=== PATIENT | female | born 1940 | race Caucasian/White ===

== ENCOUNTER 2019-08-30 09:57 | Outpatient (RCR) | payer MEDICARE, SELFPAY ==
[2019-08-30 10:35] LABS: Basophils Absolute Auto 0.01 K/mm3 (0.00-0.10); Basophils Percent Auto 0.2 % (0.0-1.0); Eosinophils Absolute Auto 0.17 K/mm3 (0.02-0.50); Hematocrit 30.7 % (35.0-42.0); Hemoglobin 9.4 g/dL (11.7-13.8); Immature Granulocyte Absolute 0.01 K/mm3 (0.00-0.00); Immature Granulocyte Percent A 0.2 % (0.0-0.0); Lymphocytes Percent Auto 18.9 % (18.0-42.0); Mean Corpuscular HGB Conc 30.6 g/dL (32.0-36.0); Mean Corpuscular Hemoglobin 28.1 pg (27.0-31.0); Mean Corpuscular Volume 91.6 fL (78.0-102.0); Mean Platelet Volume 10.4 fl (9.2-11.8); Monocytes Absolute Auto 0.37 K/mm3 (0.10-0.90); Monocytes Percent Auto 8.7 % (2.0-11.0); Neutrophils Absolute Auto 2.9 K/mm3 (1.7-7.2); Platelet Count Result 135 K/mm3 (150-420); Red Blood Count 3.35 M/mm3 (4.20-5.40); Red Cell Distribution Width 15.7 % (11.6-14.4); White Blood Count 4.2 K/mm3 (4.8-10.8)
== END 2019-11-28 23:59 | disposition home or self-care (01) ==
LOC: CHSLAB 09:57
PROVIDERS: PCP Family Medicine; Visit Provider Family Medicine
DX: D64.9 Anemia, unspecified (principal)
CPT/HCPCS: 36415; 85025

== ENCOUNTER 2019-10-06 09:05 | Emergency (ER) | payer MEDICARE, SELFPAY ==
--- NOTE | ~2019-10-06 | CT_ITS ---
EXAMINATION: CT abdomen pelvis w con DATE: 10/06/2019 10:51 INDICATION: Upper abdominal pain. Nausea and vomiting. TECHNIQUE: Computed tomography (CT) of the abdomen and pelvis was performed with 100 mL Omnipaque 350 intravenous contrast. Automated exposure control and iterative reconstruction technique were employe d. The dose-length product was 317.70 mGy-cm. COMPARISON: CT abdomen and pelvis 02/07/2019 FINDINGS: The visualized portions of the lung bases demonstrate minimal atelectasis. No pleural effus ion. The heart size is normal. No pericardial effusion. There is a permanent biliary stent. 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 Calcifications in the spleen are consistent with old granulomatous disease. There is wall thickening of the distal stomach and pro ximal duodenum with surrounding fat stranding. The pancreatic duct is dilated to 10 mm, worsened from 8 mm on 02/07/19. The adrenal glands are normal. There is a 6 mm stone in right kidney. There is a 5 mm cyst in right kidney. There is a 3 mm stone in left kidney. There are no dilated loops of bowel. T he appendix is not visualized. There are no pathologically enlarged lymph nodes. There is no free int raperitoneal fluid. There is a 13 mm cyst in the vulva. There is lumbar levoscoliosis and severe spon dylosis. IMPRESSION: 1. Unchanged moderate intrahepatic biliary duct dilatation with permanent biliary stent in expected p osition. 2. Pancreatic duct dilatation with slight worsening, likely secondary to an occult primary malignancy in the head of the pancreas. 3. Stable wall thickening of the distal stomach and proximal duodenum with surrounding fat stranding, likely changes of radiation therapy. Reviewed, dictated and finalized at location A. [facility] IMPRESSION: 1. Unchanged moderate intrahepatic biliary duct dilatation with permanent bilia ry stent in expected position. 2. Pancreatic duct dilatation with slight worsening, likely secondary to an occ ult primary malignancy in the head of the pancreas. 3. Stable wall thickening of the distal stomach and proximal duodenum with surr ounding fat stranding, likely changes of radiation therapy.
[2019-10-06 09:10] VITALS: BP 145/68; PULSE 61; RESP 20; TEMP 36.6; O2SAT 98
--- NOTE | 2019-10-06 09:35 | ED.ABDPAIN ---
HPI - Abdominal Pain General Chief Complaint: Abdominal Pain Stated Complaint: oncologist asked pt to go to er Time Seen by Provider: 10/06/19 09:35 Source: patient and RN notes reviewed Mode of arrival: ambulatory Limitations: no limitations History of Present Illness HPI narrative: 79-year-old female has a history of pancreatic cancer. She gets a scan every 3 months by her oncologist recently told her that she could wait until November for repeat scan. For the past 2-3 weeks she has been having increased problems with mid epigastric pain radiates up to her left chest. She has some sweating when she has the pain vomited yesterday. When she has these episodes is usually something associated with her history of pancreatic cancer. She had a Whipple procedure done and then after that had radiation. Apparently 1 of the stents in her common bile duct had eroded. Her oncologist was concerned that she may have cholangitis. She is here for workup and evaluation. With all results going to her oncologist for further instructions. MD elicited complaint: abdominal pain Pertinent past history: constipation and other (Pancreatic cancer s/p Whipple) Onset (ago): week(s) (Gradually getting worse and more frequent) Pain Consistency: intermittent Location: epigastric Severity: severe Quality: cramping Radiation: none Migration to: no migration Exacerbating factors: nothing Relieving factors: nothing Context: confirms history of similar episodes Associated symptoms: nausea, fever and chills Related Data Home Medications Medication Instructions Recorded Confirmed [id number] K 1 tablet PO DAILY 10/06/19 10/06/19 [Adults Multivitamin] pantoprazole [Protonix] 40 mg PO BID 10/06/19 10/06/19 Allergies Allergy/AdvReac Type Severity Reaction Status Date / Time No Known Allergies Allergy Verified 10/06/19 09:31 Review of Systems Constitutional: Constitutional: Denies chills and Denies fever(s) Cardiovascular: Cardiovascular: Reports no additional cardiovascular complaints Respiratory: Respiratory: Reports no additional respiratory complaints Gastrointestinal: Gastrointestinal: Reports nausea and Reports vomiting (Yesterday) Comments: Abd pain radiates to left chest. Musculoskeletal: Musculoskeletal: Reports no additional musculoskeletal complaints Integumentary/Breasts: Skin/Breast: Reports system reviewed and no additional complaints, except as docu Neurologic: Reports system reviewed and no additional complaints, except as documented [facility] Past Medical History Medical History Pancreatic cancer Surgical History Surgical History (Updated 10/06/19 @ 12:[address] MD) History of cholecystectomy History of pancreatic surgery History of rectal surgery Exam Const: General: healthy appearing, no acute distress and alert Nutritional Appearance: well nourished and thin Orientation/consciousness: patient oriented x3 HENMT: Head: normal to inspection Ears: external ears normal Mouth: Yes moist mucous membranes Eyes: Conjunctivae: conjunctivae normal Pupils: Equal, round and reactive pupils present EOM: EOMs intact bilaterally Neck: Neck: normal visual inspection Resp: Effort & Inspection: normal respiratory effort Auscultation: clear to auscultation bilaterally Cardio: Rate: regular rate Rhythm: regular rhythm GI: GI Palp: Yes Soft to palpation and No Guarding due to palpation present (GI) Auscultation: normal bowel sounds Back/Spine/Pelvis: Back: no CVA tenderness Cervical Spine: cervical ROM normal Thoracic/Lumbar Spine: thoraco-lumbar ROM normal Skin: General skin exam: normal color and no jaundice Rashes: no rashes Neuro: General: patient oriented x3, moves all extremities and no focal motor deficits Speech: normal speech Extrem: General: normal to inspection and no pedal edema Psych: Appearance: grossly normal and wel
[2019-10-06 09:57] LABS: Hematocrit 30.1 % (35.0-42.0); Hemoglobin 9.5 g/dL (11.7-13.8); Mean Corpuscular HGB Conc 31.6 g/dL (32.0-36.0); Mean Corpuscular Hemoglobin 27.5 pg (27.0-31.0); Mean Platelet Volume 9.8 fl (9.2-11.8); Platelet Count Result 122 K/mm3 (150-420); Red Blood Count 3.46 M/mm3 (4.20-5.40); Red Cell Distribution Width 15.5 % (11.6-14.4); White Blood Count 2.8 K/mm3 (4.8-10.8)
[2019-10-06 10:15] LABS: Alanine Aminotransferase 25 U/L (14-59); Albumin Level 3.2 g/dL (3.4-5.0); Alkaline Phosphatase 147 U/L (46-116); Amylase 37 U/L (25-115); Anion Gap 10.3 mmol/L (7-16); Aspartate Amino Transferase 20 U/L (15-37); Bilirubin,Total 0.4 mg/dL (0.00-1.00); Blood Urea Nitrogen 12 mg/dL (7-18); Calcium 8.2 mg/dL (8.5-10.1); Carbon Dioxide 28 mmol/L (21-32); Chloride 107 mmol/L (98-108); Estimated CRCL calculation 47 ml/min; Estimated Glomerular Filt Rate > 60; Glucose 92 mg/dL (70-99); Lipase 19 U/L (73-393); Osmolality Calculated 293 mOsm/kg (285-295); Potassium 3.3 mmol/L (3.5-5.1); Sodium 142 mmol/L (136-145); Total Protein 6.6 g/dL (6.4-8.2)
[2019-10-06 10:17] LABS: CRP 0.4 mg/dL (0.0-0.9)
[2019-10-06 10:18] LABS: Band Neutrophils Percent 0 % (0-6); Lymphocytes Absolute Manual 0.67 K/mm3 (1.1-4.5); Lymphocytes Percent Manual 24 % (18-44); Neutrophils Absolute Manual 1.82 K/mm3 (1.7-7.2); Neutrophils Percent Manual 65 % (46-73); Platelet Estimate Decreased (Adequate); Total Cells Counted 100
[2019-10-06 10:19] LABS: Basophils Percent Manual 0 % (0-1); Eosinophils Absolute Manual 0.02 K/mm3 (0.02-0.5); Eosinophils Percent Manual 1 % (1-6); Monocytes Absolute Manual 0.28 K/mm3 (0.1-0.90); Monocytes Percent Manual 10 % (3-9)
--- NOTE | 2019-10-06 11:08 | PC.NURSE ---
MADISON CHIN RN FOR ONCOLOGIST CONTACTED TO RECIEVE FAX NUMBER. AWAITING CALL BACK
--- NOTE | 2019-10-06 12:16 | PC.NURSE ---
LAB RESULTS AND CT ABD RESULT FAXED TO ONCOLOGIST OFFICE. AWAITING CALL BACK.
--- NOTE | 2019-10-06 12:45 | PC.NURSE ---
[facility] CALLED RN TO SAY PT MAY BE DICHARGED AND THEY WILL CALL HER FOR F/U APPT
--- NOTE | 2019-10-06 12:49 | PC.NURSE ---
MEAL PROVIDED AT PT REQUEST
[2019-10-06 13:41] VITALS: RESP 14
== END 2019-10-06 13:42 | disposition home or self-care (01) ==
PROVIDERS: Emergency Provider Emergency Medicine; PCP Family Medicine
DX: C25.0 Malignant neoplasm of head of pancreas (principal)
CPT/HCPCS: 36415; 74177; 80053; 82150; 83690; 85025; 86140; 99282; 99284; Q9965